=== PATIENT | female | born 1970 | race Caucasian/White ===

== ENCOUNTER 2018-04-22 16:50 | Emergency (ER) | payer OTHER, BC, SELFPAY ==
[2018-04-22 16:51] VITALS: BP 153/79; PULSE 58; RESP 18; TEMP 37.3; O2SAT 98; BMI 32.8
[2018-04-22] MEDS: HYDROcodone Bitartrate/Apap 5/325 Tablet PO (18:10)
[2018-04-22 18:12] VITALS: TEMP 36.6
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
--- NOTE | 2018-04-22 18:18 | ED.RN ---
PT [employer]OCIATE CALLED BACK TO ED. PT IS NOT A DRUG SCREEN.
== END 2018-04-22 18:38 | disposition home or self-care (01) ==
LOC: ED 18:12
PROVIDERS: Emergency Provider Emergency Medicine
DX: T25.232A Burn of second degree of left toe(s) (nail), initial encounter (principal); T25.231A Burn of second degree of right toe(s) (nail), initial encounter; T31.0 Burns involving less than 10% of body surface; X12.XXXA Contact with other hot fluids, initial encounter; Y93.G3 Activity, cooking and baking; Y92.89 Other specified places as the place of occurrence of the external cause; Y99.0 Civilian activity done for income or pay; Z79.899 Other long term (current) drug therapy
CPT/HCPCS: 99283

== ENCOUNTER → 2018-05-08 15:26 | Outpatient (CLI) | payer OTHER, SELFPAY ==
[2018-05-08 15:02] VITALS: BMI 36.1
--- NOTE | 2018-05-08 15:30 | RAD_ITS ---
STUDY: X-RAY - LEFT FOOT CLINICAL: Female, 48 years old. Pain following injury. TECHNIQUE: 3 view(s) of the foot. COMPARISON: None. FINDINGS: There is a plantar calcaneal spur. Normal visualized subtalar, talonavicular, calcaneocuboid, tarsal and tarsometatarsal articulations. Normal metatarsi. Normal metatarsophalangeal joint of the great toe. Normal tibial and fibular sesamoid bones. Normal interphalangeal joint of the great toe. Normal phalanges of the great toe. Normal second through fifth metatarsophalangeal joints. Normal interphalangeal joints and phalanges of the lesser toes. Soft tissue swelling. RAD/Foot min 3 Views IMPRESSION: Plantar spur. Soft tissue swelling. Electronically Signed: Bijan Angel MD at 15:46 EST Tel [phone], Service support ,
--- OUTSIDE RECORDS SUMMARY | 2018-07-13 14:47 | XMS RPT_ITS ---
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 Neutrophil, 7.40 Absolute Performed By: #### CBC, ADIFF, ANEU, LIP, GFR, CMP, TROPI #### [place] [address] LIP Collected: 08/08/2017 Status: F Source: [facility] 10:28 PM [facility] REPOSITORY TYPE CODE TESTS RESULT OUT OF REFERENCE UNITS RANGE LAB LIP(LOINC) 73-393 U/L Lipase Level 198 Performed By: #### CBC, ADIFF, ANEU, LIP, GFR, CMP, TROPI #### [place] [address] .GFR Collected: 08/08/2017 Status: F Source: [facility] 10:28 PM [facility] REPOSITORY TYPE CODE TESTS RESULT OUT OF REFERENCE UNITS RANGE LAB GFRAA(LOINC ml/min/1.73 ) sqm GFR >60 Pakistani Result Comment: GFR Population mean for , Non- Americans Ages 20-29 = 116 mL/min/1.73 sq.m. Ages 30-39 = 107 mL/min/1.73 sq.m. Ages 40-49 = 99 mL/min/1.73 sq.m. Ages 50-59 = 93 mL/min/1.73 sq.m. Ages 60-69 = 85 mL/min/1.73 sq.m. Ages 70+ = 75 mL/min/1.73 sq.m. Chronic Kidney Disease: Less than 60 mL/min/1.73 square meters End Stage Renal Disease: Less than 15 mL/min/1.73 square meters LAB GFRNO(LOINC) ml/min/1.73sqm GFR Non- >60 Result Comment: GFR Population mean for , Non- Americans Ages 20-29 = 116 mL/min/1.73 sq.m. Ages 30-39 = 107 mL/min/1.73 sq.m. Ages 40-49 = 99 mL/min/1.73 sq.m. Ages 50-59 = 93 mL/min/1.73 sq.m. Ages 60-69 = 85 mL/min/1.73 sq.m. Ages 70+ = 75 mL/min/1.73 sq.m. Chronic Kidney Disease: Less than 60 mL/min/1.73 square meters End Stage Renal Disease: Less than 15 mL/min/1.73 square meters Performed By: #### CBC, ADIFF, ANEU, LIP, GFR, CMP, TROPI #### [place] [address] CMP Collected: 08/08/2017 Status: F Source: [facility] 10:28 PM [facility] REPOSITORY TYPE CODE TESTS RESULT OUT OF REFERENCE UNITS RANGE LAB GLU(LOINC) 70-110 mg/dL Glucose Level 104 LAB NA(LOINC) 136-145 mEq/L Sodium Level 140 LAB K(LOINC) 3.5-5.0 mEq/L Potassium Level 3.5 LAB CL(LOINC) 98-110 mEq/L Chloride 106 LAB CO2(LOINC) 22-32 mEq/L CO2 27 LAB EBAL(LOINC 4.0-15.0 mEq/L ) Electrolyte Balance 7.0 LAB BUN(LOINC) 8.0-22.0 mg/dL BUN 19.0 LAB CRE(LOINC) 0.50-1.20 mg/dL Creatinine Lvl (s) 0.65 LAB BC(LOINC) 10.0-22.0 ratio High BUN/Creatinine 29.2 Ratio LAB CA(LOINC) 8.4-10.1 mg/dL Calcium Lvl 8.5 LAB PROT(LOINC 6.0-8.5 G/dL ) Total Protein 6.4 LAB ALB(LOINC) 3.2-4.8 G/dL Albumin Level 3.5 LAB GLB(LOINC) 1.5-3.8 G/dL Globulin 2.9 LAB AG(LOINC) 0.9-1.6 ratio A/G Ratio 1.2 LAB BILT(LOINC 0.2-1.2 mg/dL ) Bili Total 0.2 LAB AP(LOINC) 38-126 U/L Alk Phos 75 LAB AST(LOINC) 8-34 U/L AST/SGOT 13 LAB ALT(LOINC) 10-49 U/L ALT/SGPT 23 Performed By: #### CBC, ADIFF, ANEU, LIP, GFR, CMP, TROPI #### [address] [address] TROPI Collected: 08/08/2017 Status: F Source: [facility] 10:28 PM [facility] REPOSITORY TYPE CODE TESTS RESULT OUT OF REFERENCE UNITS RANGE LAB TROPI(LOINC 0.000-0.040 ng/mL ) Troponin I <0.015 Result Comment: Troponin I reference ranges (12/29/13): 0.00-0.040 ng/mL Negative and non-diagnostic. >0.040 ng/mL Consistent with cardiac damage, increased clinical risk and possibility of myocardial infarction. Serial measurements, a rise & fall in test results, clinical history, appropriate symptoms and/or ECG changes may help assess possibility of PA. *Other non-acute coronary syndrome conditions such as CHF, myocarditis, pulmonary emboli, sepsis and cardiac surgery could result in myocardial damage and increased troponin levels. Performed By: #### CBC, ADIFF, ANEU, LIP, GFR, CMP, TROPI #### [address] [address] ALLERGIES ALLERGIES DATE TYPE / CODE NAME / CODE REACTION SEVERITY SOURCE 04/24/2018 Drug methylphenid Other Unknown [facility] Allergy/4160 ate/[id number] [facility] [address](SNOMED 19(RXNORM) Repository CT) ENCOUNTERS ENCOUNTERS ADMIT/DISCHARGE ACCOUNT NUMBER ADMITTING ENCOUNTER LOCATION SOURCE CLASS 05/08/2018 [id number] Ambulatory [facility] ding:HPRAD Repository 05/08/2018/05/08/19 [id number] Ambulatory BMSBuilding: Mike 19 BMS.[facility] Repository 05/01/2018/05/01/19 [id number] Ambulatory BMSBuilding: [place] 19 BMS.[facility] Repository 04/26/2018/04/26/19 [id number] Emergency ABuilding:ER [address] Repository 04/24/2018/04/24/19 [id number] Ambulatory BMSBuilding: [place] 19 [facility] Repository 04/22/2018/04/22/20 [id number] Emergency Mike [place] 18 [facility] ding:ED Repository 02/04/2018 [id number] Ambulatory [facility] [place] ng:H.CRL 10/17/2017 [id number] Ambulatory [facility] [place] ng:H.INM 09/09/2017 [id number] [facility] [place] ng:H.CR 08/08/2017/08/09/19 [id number] Emergency ABuilding:ER [address] Repository 07/30/2017 [id number] [place] [facility] [place] ng:H.INM PAYERS PAYERS ENCOUNTER GUARANTOR PAYER SUBSCRIBER SOURCE 05/08/2018 MOISES L Primary MOISES L [place] [id number] Insurance:OB SELWAYDOB: [facility] 4135[place] Number: Repository [id number]: [phone] [id number] [phone] () Date:2680-93-97[address], [place] [address]RN: 05/08/2018 Secondary NOT GIVENUNK [place] Insurance:SELF PAY [facility] Number: Effective Repository Date:2018-05-08 05/08/2018 MOISES L Primary NOT GIVENUNK [place] [id number] Insurance:SELF PAY [place], [place] Number: Effective Repository [phone]: [phone]) Date:2018-05-08 [phone] () 05/01/2018 MOISES L Primary NOT GIVENUNK [place] [id number] Insurance:SELF PAY [place] Number: Effective Repository [id number]: ([phone] Date:2018-05-01 [phone] () 04/26/2018 MOISES L Primary MOISES L [facility] SELWAYDOB: Insurance:[facility] SELWAYDOB: [facility] [id number] Repository [facility] [employer] Number: [address] [place] [id number], [place] [address]Jll: ([phone]) Date:2018-04-22 [phone]: [id number] [phone] ()Tel: [phone]) Name:[employer] TE[employer] Box () () [address]192[address]kw[place]ji, [place] [phone] () [id number]: 04/26/2018 Secondary MOISES [facility]anti [facility] Insurance:[place] SELWAYDOB: [facility] [id number] Repository Number: 7 [facility] [id number] [place] Date:2018-04-26 285[address]Amg: 330 [id number] [phone] Name:[address] ()Tel: [phone]) [place], [place] [phone] (CG) [address]GR: 04/24/2018 MOISES L Primary NOT GIVENUNK Mike [id number] Insurance:SELF PAY Community [place] Number: Effective Repository [phone]: [phone]) Date:2018-04-24 [phone] () 04/22/2018 MOISES L Primary MOISES L Mike [id number] Insurance:OBW SELWAYDOB: Community [facility] [id number] Number: Repository [id number]: 330 [id number] [phone] () Date:6889-84-32AD [facility] [address]708[place]FX[place], [place] [address]NO: 04/22/2018 Secondary MOISES L [place] Insurance:[employer] SELWAYDOB: Community y Number: [id number] [id number] Repository Date:2921-51-05PP [address] [place] [address] [place] [address]QL: 04/22/2018 Tertiary NOT GIVENUNK [place] Insurance:SELF PAY [facility] Number: Effective Repository Date:2018-04-22 02/04/2018 MOISES L Primary MOISES MARIVEL [facility] [id number] Insurance:[facility] Number: [facility]ository [facility] or [id number]: ([phone]) Date:2641-36-78WX [phone] (HP) 192054LMQZ[place], [place] [address]UO: 10/17/2017 MOISES L Primary MOISES Santi [facility] [id number] Insurance:[facility]ository [facility] Number: [id number]: 330 [id number] [phone] (HP) Date:6216-20-06PW [address] [place] [address]RK: 09/09/2017 MOISES L Primary MOISES Santi [facility] [id number] Insurance:[facility] Repository [facility] or Number: [id number]: 330 [id number] [phone] (HP) Date:0712-94-76RM [address] [place] [address]AK: 08/08/2017 MOISES L Primary MOISES Santi [facility] SELWAYDOB: Insurance:[facility]: [facility] [address] [facility] [id number] [facility] [address] Number: [address] [place], [place] [address] [id number] [place], [place] [address]Ynq: ([phone]) Date:2017-08-08 111[address]Tjo: [id number] [phone] (HP)Tel: [phone]) Name:[address] (HP) (WP) 2276[facility] CenterMARTIR sheets [phone] (LW) [address]WP: 07/30/2017 MOISES [facility]3147 Insurance:[place], [place] Number: [id number]: [phone] [id number] [phone] () Date:3903-48-90OR [address] [place], [place] [address]MARTIR SHEETS [address]HS:
== END ==
PROVIDERS: Referring Provider Physician Assistant; Visit Provider Physician Assistant
DX: T25.222A Burn of second degree of left foot, initial encounter (principal); X58.XXXA Exposure to other specified factors, initial encounter; Y93.9 Activity, unspecified; Y92.9 Unspecified place or not applicable; Y99.9 Unspecified external cause status
CPT/HCPCS: 73630

== ENCOUNTER 2018-05-23 07:46 | Outpatient (RCR) | payer OTHER, BC, SELFPAY ==
[2018-05-08 15:02] VITALS: BMI 36.1
[2018-05-23 08:12] VITALS: BP 147/90; PULSE 71; RESP 20; TEMP 37.4; BMI 34.9
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
[2018-05-23 18:36] LABS: M R Staph aureus DNA By PCR Negative (Negative); Probe Check PASS; Specimen Processing Control PASS; Staph aureus DNA By PCR NEGATIVE (Negative)
== END 2018-05-23 23:59 ==
LOC: WC 07:46
PROVIDERS: Visit Provider Podiatrist
DX: L97.522 Non-pressure chronic ulcer of other part of left foot with fat layer exposed (principal); M79.672 Pain in left foot; F17.200 Nicotine dependence, unspecified, uncomplicated
CPT/HCPCS: 11042; 87070; 87075; 87205; 87640; 99213; G0463

== ENCOUNTER → 2018-05-23 14:08 | Outpatient (CLI) | payer OTHER, BC, SELFPAY ==
[2018-05-23 08:12] VITALS: BMI 34.9
== END ==
PROVIDERS: Referring Provider Physician Assistant; Visit Provider Physician Assistant
DX: T25.222A Burn of second degree of left foot, initial encounter (principal); X58.XXXA Exposure to other specified factors, initial encounter; Y93.9 Activity, unspecified; Y92.9 Unspecified place or not applicable; Y99.9 Unspecified external cause status
CPT/HCPCS: 87070; 87205

== ENCOUNTER 2018-06-13 08:13 | Outpatient (RCR) | payer OTHER, BC, SELFPAY ==
[2018-05-24 01:59] VITALS: BP 147/90; PULSE 71; RESP 20; TEMP 37.4
[2018-06-05 15:35] VITALS: BMI 34.9
[2018-06-13 08:28] VITALS: BP 135/72; RESP 18; TEMP 36.8; BMI 34.9
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
== END 2018-06-20 23:59 ==
LOC: WC 08:13
PROVIDERS: Visit Provider Podiatrist
DX: Z09 Encounter for follow-up examination after completed treatment for conditions other than malignant neoplasm (principal); M79.675 Pain in left toe(s)
CPT/HCPCS: 99213; G0463

== ENCOUNTER → 2018-07-03 14:25 | Outpatient (CLI) | payer BC, OTHER, SELFPAY ==
[2018-07-02 14:35] VITALS: BMI 34.9
== END ==
PROVIDERS: Referring Provider Physician Assistant Surgical; Visit Provider Physician Assistant Surgical
DX: J02.9 Acute pharyngitis, unspecified (principal)
CPT/HCPCS: 87081

== ENCOUNTER → 2019-01-08 10:08 | Outpatient (CLI) | payer OTHER, SELFPAY ==
[2019-01-08 10:00] VITALS: BMI 36.6
--- NOTE | 2019-01-08 10:11 | RAD_ITS ---
STUDY: X-RAY - SACRUM/COCCYX REASON FOR EXAM: Female, 48 years old. Pain following a fall. TECHNIQUE: view(s) of the sacrum and coccyx were obtained. COMPARISON: None. FINDINGS: Normal bilateral sacroiliac joints. Normal visualized sacral ala and fused sacral bodies. Normal sacrococcygeal junction with a normal angulation. Normal coccygeal segments. Disc space narrowing and disc degeneration at the L5-S1 level. The presacral soft tissue structures are unremarkable. RAD/Sacrum-Coccyx min 2 Views IMPRESSION: No acute abnormality is seen. Electronically Signed: Bijan Angel, at 11:10 EDT , Service support ,
--- NOTE | 2019-01-08 10:11 | RAD_ITS ---
STUDY: X-RAY - LEFT KNEE REASON FOR EXAM: Female, 48 years old. Medial knee pain following a fall. TECHNIQUE: 4 view(s) of the knee. COMPARISON: None. FINDINGS: The generous spurring along the medial condyle of the distal femur. Normal visualized proximal tibia and fibula. Normal proximal tibiofibular articulation. There is a 5.7 mm well-defined bony density in the posterior medial aspect of the knee joint. This may represent a small loose body. There is moderate degenerative arthrosis of the medial femorotibial compartment with moderate joint space narrowing. There is moderate degenerative arthrosis of the lateral femorotibial compartment with moderate joint space narrowing. There is moderate degenerative arthrosis of the patellofemoral articulation. The soft tissue structures are unremarkable. RAD/Knee 4 or More Views IMPRESSION: Degenerative arthrosis. Findings suggestive of a small intra-articular loose bone density. Electronically Signed: Bijan Angel, at 11:09 EDT , Service support ,
== END ==
PROVIDERS: Referring Provider Physician Assistant; Visit Provider Physician Assistant
DX: S30.0XXA Contusion of lower back and pelvis, initial encounter (principal); S89.92XA Unspecified injury of left lower leg, initial encounter; X58.XXXA Exposure to other specified factors, initial encounter; Y93.9 Activity, unspecified; Y92.9 Unspecified place or not applicable; Y99.9 Unspecified external cause status
CPT/HCPCS: 72220; 73564

== ENCOUNTER → 2019-02-26 10:49 | Outpatient (CLI) | payer OTHER, BC, SELFPAY ==
[2019-02-26 10:32] VITALS: BMI 36.3
--- NOTE | 2019-02-26 11:01 | RAD_ITS ---
STUDY: X-RAY - LUMBOSACRAL SPINE REASON FOR EXAM: Female, 49 years old. Injury, pain TECHNIQUE: 6 view(s) of the lumbosacral spine were obtained. COMPARISON: None FINDINGS: Normal lumbar lordosis. There is no substantial scoliosis. There is normal alignment of the vertebrae. There is multilevel endplate spondylosis of the lumbar vertebrae. There is narrowing of the L1-2, L2-3, and L5-S1 disc spaces. Normal bilateral sacral ala, sacroiliac joints, and visualized sacrum. Normal visualized soft tissue structures. RAD/L/S Spine w Bend Min 6 Vw IMPRESSION: Degenerative changes of the spine, as detailed above. Electronically Signed: Dain Colin MD at 16:55 EST , Service support ,
== END ==
PROVIDERS: Referring Provider Orthopaedic Surgery; Visit Provider Orthopaedic Surgery
DX: M79.604 Pain in right leg (principal)
CPT/HCPCS: 72114

== ENCOUNTER → 2019-05-16 09:34 | Outpatient (CLI) | payer OTHER, SELFPAY ==
[2019-05-05 07:56] VITALS: BMI 36.3
--- NOTE | 2019-05-16 09:35 | MRI_ITS ---
STUDY: MRI LEFT KNEE REASON FOR EXAM: Knee pain and cyst behind the knee since December. TECHNIQUE: Standardized fat and water weighted pulse sequences were obtained in all 3 orthogonal planes. COMPARISON: Radiographs 01/08/2019. FINDINGS: Although there is image degradation secondary to patient motion, there is still significant diagnostically useful information available from this examination. There is no demonstrated meniscal tear. There is arthrosis of the medial femorotibial compartment with a small marginal osteophyte of the medial femoral condyle and partial thickness chondral loss of the medial femoral condyle (T2 sagittal image 9). There is mild subchondral edema of the medial tibial plateau (T2 coronal images 13-17), a stress phenomenon. Normal medial collateral ligamentous complex (MCL). Normal distal semimembranosus, gracilis and semitendinosus tendons. There is no demonstrated lateral meniscal tear. There is arthrosis of the lateral femorotibial compartment with marginal osteophytes and partial thickness chondral loss of the lateral femoral condyle (T2 sagittal image 17). Normal lateral femoral condyle and tibial plateau. Normal proximal tibiofibular articulation. Normal lateral collateral (fibular) ligament. Normal popliteus tendon. Normal biceps femoris tendon. Normal anterior cruciate ligament (ACL). Normal posterior cruciate ligament (PCL). There is lateral subluxation of the patella (T2 axial image 13). There is arthrosis of the patellofemoral compartment with marginal osteophytes and chondral loss (T2 sagittal image 16). Normal medial and lateral patellar retinaculum. Normal quadriceps tendon. Normal patellar tendon. Normal Hoffa''s fat pad. There is a small to moderate-sized joint effusion. There is an intra-articular body posterior to the root of the posterior horn of the medial meniscus (T2 coronal image 9) measuring 0.4 cm in transverse dimension. There is a thin medial patellar plica. There is a popliteal cyst measuring approximately 6.4 cm in length with extravasation of fluid (T2 sagittal images 4-10). There is a ganglion cyst adjacent to the origin of the medial gastrocnemius (T2 sagittal images 7-11) measuring 2.3 cm in transverse dimension. There is a ganglion cyst posterior to the posterior cruciate ligament (T2 sagittal images 13, 14) measuring approximately 2.2 cm in length. There is mild bone edema in the proximal tibia at the insertion site of the anterior cruciate ligament. MRI/Lower Ext Joint Only (Routine) IMPRESSION: Tricompartmental arthrosis. Mild subchondral bone edema of the medial tibial plateau, a stress phenomenon. Lateral subluxation of the patella. Joint effusion. Popliteal cyst with extravasation of fluid. Posterior intra-articular body. Ganglion cysts adjacent to the origin of the medial gastrocnemius and posterior to the posterior cruciate ligament. Electronically Signed: Gianni Bethea MD at 11:03 EST Tel , Service support ,
== END ==
PROVIDERS: Referring Provider Orthopaedic Surgery; Visit Provider Orthopaedic Surgery
DX: S86.912A Strain of unspecified muscle(s) and tendon(s) at lower leg level, left leg, initial encounter (principal); X58.XXXA Exposure to other specified factors, initial encounter; Y93.9 Activity, unspecified; Y92.9 Unspecified place or not applicable; Y99.9 Unspecified external cause status
CPT/HCPCS: 73721

== ENCOUNTER 2023-03-29 08:08 | Emergency (ER) | payer BC, SELFPAY ==
[2023-03-29 08:09] VITALS: BP 170/93; PULSE 76; RESP 14; TEMP 36.6; O2SAT 100; BMI 35.7
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
--- NOTE | 2023-03-29 08:49 | CT_ITS ---
STUDY: CT BRAIN WITHOUT CONTRAST REASON FOR EXAM: Female, 53 years old. Injury/Pain RADIATION DOSAGE (If Supplied By Facility): CTDIvol = ( 44.99 ) mGy, DLP = ( 829.85 ) mGycm TECHNIQUE: Transaxial CT imaging of the brain was performed without administration of intravenous contrast material. Individualized dose optimization techniques were used for this CT. COMPARISON: No relevant priors. FINDINGS: Normal soft tissue structures. There is hyperostosis frontalis internus. Normal size ventricles and extra-axial spaces for the patient''s age. Normal white matter tracts of the cerebral hemispheres. Normal basal ganglia and thalami. Normal brainstem. Normal cerebellum. There is no intracranial hemorrhage. There are no findings of an acute ischemic infarction. There is a 9.1 mm polyp in the anterior wall of the right maxillary sinus and mucosal thickening along the posterior aspect of the maxillary sinus. CT/Brain/Head without Contrast IMPRESSION: Normal unenhanced CT scan of the brain. Mucosal thickening right maxillary sinus as well as a small polyp. Electronically Signed: Bijan Angel MD at 9:29 EST ,
--- NOTE | 2023-03-29 08:49 | CT_ITS ---
STUDY: CT CERVICAL SPINE WITHOUT CONTRAST REASON FOR EXAM: Female, 53 years old. Injury/Pain RADIATION DOSAGE (If Supplied By Facility): CTDIvol = ( 25.67 ) mGy, DLP = ( 530.47 ) mGycm TECHNIQUE: High resolution transaxial imaging was performed without contrast material. Sagittal and coronal images were reconstructed. Individualized dose optimization techniques were used for this CT. COMPARISON: None FINDINGS: Normal craniovertebral junction. Normal anterior atlantoaxial articulation. Normal odontoid process. There is straightening of the normal cervical lordosis. Normal vertebral bodies and posterior osseous elements. C2-3: Normal endplates. Normal disc height and morphology. Normal central canal and intervertebral neuroforamina. C3-4: Normal endplates. Normal disc height and morphology. Normal central canal and intervertebral neuroforamina. C4-5: Moderate degree of disc space narrowing. Spondylosis. Uncovertebral arthrosis. Bilateral neural foraminal stenosis worse on the right side. C5-6: Moderate degree of disc space narrowing. Spondylosis. Uncovertebral arthrosis. Bilateral neural foraminal stenosis worse on the right side. C6-7: Moderate degree of disc space narrowing. Spondylosis. Uncovertebral arthrosis. Mild degree of neural foraminal stenosis. C7-T1: Normal endplates. Normal disc height and morphology. Normal central canal and intervertebral neuroforamina. Surgical clips are seen in the region of the thyroid gland. CT/Spine Cervical without Contras IMPRESSION: Multilevel degenerative changes, as described above. Electronically Signed: Bijan Angel MD at 9:31 EST ,
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
[2023-03-29 10:08] VITALS: BP 147/81; PULSE 61; RESP 18; O2SAT 96
== END 2023-03-29 10:22 | disposition home or self-care (01) ==
PROVIDERS: Emergency Provider Emergency Medicine; Visit Provider Emergency Medicine
DX: S09.90XA Unspecified injury of head, initial encounter (principal); S20.20XA Contusion of thorax, unspecified, initial encounter; S16.1XXA Strain of muscle, fascia and tendon at neck level, initial encounter; V43.52XA Car driver injured in collision with other type car in traffic accident, initial encounter; W22.10XA Striking against or struck by unspecified automobile airbag, initial encounter; Y92.410 Unspecified street and highway as the place of occurrence of the external cause; E07.9 Disorder of thyroid, unspecified; Z79.890 Hormone replacement therapy; Z79.899 Other long term (current) drug therapy; F17.210 Nicotine dependence, cigarettes, uncomplicated
CPT/HCPCS: 70450; 71101; 72125; 99282

== ENCOUNTER → 2023-09-27 | Outpatient (CLI) | payer BC, SELFPAY ==
[2023-09-27 17:20] LABS: Absolute Neutrophil Count 5.9 X10^3/uL (2.0-7.7); Basophil# 0.11 X10^3/uL; Eosinophil# 0.33 X10^3/uL; Eosinophils% 2.9 % (0-5); Lymphocyte % 36.3 % (19-41); Mean Corp Hgb Conc 33.3 g/dL (32-36); Mean Corpuscular Hgb 28.7 pg (27.0-32.0); Mean Platelet Vol. 11.6 fl (6.2-12.0); Monocyte# 0.82 X10^3/uL; Monocyte% 7.3 % (0-10); NRBC Flagged by Analyzer 0 % (0-5); Neutrophil # 5.88 X10^3/uL (2.7-7.7); Neutrophil % 52.1 % (47-70); Platelet Count 221 K/mm3 (150-450); RBC Distribution Width CV 13.1 % (11.6-14.6); RBC Distribution Width SD 41.1 fl (35.1-43.9); Red Blood Count 5.23 M/mm3 (4.2-5.4); White Blood Count 11.3 K/mm3 (4.4-11.0)
[2023-09-27 17:35] LABS: Hemoglobin A1c 5.3 % (3.8-5.6)
[2023-09-27 17:38] LABS: ALB/GLOB Ratio 1.3 RATIO (0.9-2.4); AST(SGOT) 16 U/L (15-37); Alanine Aminotransfer ALT/SGPT 23 U/L (13-56); Albumin, Serum 3.7 g/dL (3.2-5.0); Alkaline Phosphatase 82 U/L (45-117); Anion Gap 7 (5-15); BUN 13 mg/dL (7-18); BUN/Creat Ratio 16.6 RATIO (10-20); Calcium,Total 8.9 mg/dL (8.5-10.1); Chloride 106 mmol/L (98-107); Creatinine, Serum 0.78 mg/dL (0.55-1.02); EST Glomerular Filtration Rate 81 mL/min (>60); Est Glom Filt Rate - Afr Amer 98 mL/min (>60); Globulin 2.8 g/dL (2.2-4.2); Glucose 85 mg/dL (74-106); Magnesium 2.1 mg/dL (1.6-2.6); Potassium 3.6 mmol/L (3.5-5.1); Protein, Total 6.5 g/dL (6.4-8.2); Sodium Level 137 mmol/L (136-145); T4 Free Direct 1.38 ng/dL (0.76-1.46); Thyroid Stim Hormone (TSH) 0.41 uIU/mL (0.358-3.74)
== END | disposition home or self-care (01) ==
LOC: LABSPEC 15:54
PROVIDERS: Visit Provider Nurse Practitioner Family
DX: R03.0 Elevated blood-pressure reading, without diagnosis of hypertension (principal); I47.10 Supraventricular tachycardia, unspecified; Z85.850 Personal history of malignant neoplasm of thyroid; E66.9 Obesity, unspecified
CPT/HCPCS: 36415; 80053; 83036; 83735; 84439; 84443; 85025

== ENCOUNTER → 2024-04-01 | Outpatient (CLI) | payer OTHER, SELFPAY ==
[2024-04-01 17:11] LABS: Absolute Lymphocyte Count 3.99 X10^3/uL (0.83-4.51); Absolute Neutrophil Count 6.4 X10^3/uL (2.0-7.7); Basophil# 0.16 X10^3/uL; Basophil% 1.4 % (0-1); Eosinophil# 0.41 X10^3/uL; Eosinophils% 3.5 % (0-5); Hemoglobin 14.7 g/dL (12.0-15.0); Lymphocyte # 3.99 X10^3/ul (0.83-4.51); Lymphocyte % 33.9 % (19-41); Mean Corp Hgb Conc 33.4 g/dL (32-36); Mean Corpuscular Hgb 28.7 pg (27.0-32.0); Mean Corpuscular Volume 85.8 fL (81-99); Mean Platelet Vol. 12.1 fl (6.2-12.0); NRBC Flagged by Analyzer 0 % (0-5); Neutrophil # 6.44 X10^3/uL (2.7-7.7); Neutrophil % 54.7 % (47-70); Platelet Count 200 K/mm3 (150-450); RBC Distribution Width CV 13.2 % (11.6-14.6); RBC Distribution Width SD 41.6 fl (35.1-43.9); Red Blood Count 5.13 M/mm3 (4.2-5.4); White Blood Count 11.8 K/mm3 (4.4-11.0)
[2024-04-01 17:41] LABS: ALB/GLOB Ratio 1.2 RATIO (0.9-2.4); AST(SGOT) 20 U/L (15-37); Alanine Aminotransfer ALT/SGPT 30 U/L (13-56); Albumin, Serum 3.5 g/dL (3.2-5.0); Alkaline Phosphatase 105 U/L (45-117); Anion Gap 6 (5-15); BUN 15 mg/dL (7-18); BUN/Creat Ratio 16.9 RATIO (10-20); Chloride 107 mmol/L (98-107); Creatinine, Serum 0.89 mg/dL (0.55-1.02); EST Glomerular Filtration Rate 70 mL/min (>60); Est Glom Filt Rate - Afr Amer 85 mL/min (>60); Glucose 107 mg/dL (74-106); Potassium 3.3 mmol/L (3.5-5.1); Protein, Total 6.5 g/dL (6.4-8.2); Sodium Level 141 mmol/L (136-145); T4 Free Direct 1.11 ng/dL (0.76-1.46)
[2024-04-01 18:18] LABS: Hemoglobin A1c 5.2 % (3.8-5.6)
== END | disposition home or self-care (01) ==
LOC: VSLAB 14:16
PROVIDERS: PCP Nurse Practitioner Family; Visit Provider Nurse Practitioner Family
DX: E03.9 Hypothyroidism, unspecified (principal); M25.539 Pain in unspecified wrist; I47.10 Supraventricular tachycardia, unspecified; E66.9 Obesity, unspecified; Z85.850 Personal history of malignant neoplasm of thyroid
CPT/HCPCS: 36415; 80053; 83036; 83735; 84439; 84443; 85025

== ENCOUNTER → 2024-05-28 | Outpatient (CLI) | payer OTHER, SELFPAY ==
[2024-05-30 05:07] LABS: HEPATITIS B SURFACE AG Negative (Negative); Hep C Antibodies Non Reactive (Non Reactive); Hepatitis A IgM Antibody Negative (Negative); Hepatitis B Core AB IgM Negative (Negative)
== END | disposition home or self-care (01) ==
PROVIDERS: PCP Nurse Practitioner Family
DX: Z20.5 Contact with and (suspected) exposure to viral hepatitis (principal)
CPT/HCPCS: 36415; 80074

== ENCOUNTER 2024-07-04 10:08 | Emergency (ER) | payer OTHER, SELFPAY ==
[2024-07-04 10:09] VITALS: BP 179/90; PULSE 83; RESP 18; TEMP 36.6; O2SAT 100; BMI 35.2
--- NOTE | 2024-07-04 10:21 | EKG12_ITS ---
Test Reason : HTN Blood Pressure : */* mmHG Vent. Rate : 67 BPM Atrial Rate : 67 BPM P-R Int : 178 ms QRS Dur : 132 ms QT Int : 422 ms P-R-T Axes : 44 -20 82 degrees QTcB Int : 445 ms Normal sinus rhythm Left ventricular hypertrophy with QRS widening ( R in aVL , Emerson product ) Abnormal ECG Confirmed by JIGNESH DELATORRE, CASS ([id number]), medical editor JERO HECTOR ([id number]) on 07/07/2024 10:52:50 AM Referred By: Confirmed By: CASS EGAN MD
--- NOTE | 2024-07-04 10:22 | EX.ED.DYSGE1 ---
HPI History of Present Illness Chief Complaint: Hypertension Narrative Narrative: 54-year-old female past medical history of SVT, was recently diagnosed with hypertension 2 days ago at the [facility] spine clinic. She presents with multiple somatic complaints, and is unsure if she took her blood pressure medication today. She states that she was seen 2 days ago because of elevated blood pressure. She was started reportedly on lisinopril 10 mg. She took it Sunday evening and when she awoke on morning, states her blood pressure was controlled. However, she states she put it aside to look it up on the Internet to see any side effects, and put it aside. She is unsure if she took it today. She presents with worsening symptoms, stating that she has had worsening headaches, with left-sided chest pain, and does not feel right. She denies any leg swelling, no exacerbating or alleviating factors. States that her blood pressure has been running high in the 170s and 180s recently. [facility] Medical History SVT (supraventricular tachycardia) Acute depression Anxiety Thyroid disease Arthritis Home Medications ?Medication ?Instructions ?Recorded ?Last Taken ?Type lamotrigine 150 mg tablet 150 mg PO BID 04/22/18 Unknown History venlafaxine 150 mg 150 mg PO BID 04/22/18 Unknown History capsule,extended release 24 hr albuterol sulfate 90 mcg/actuation 1 puff inhalation Q6H PRN 04/05/20 Unknown History aerosol inhaler bupropion HCl 300 mg 24 hr tablet, 300 mg PO QAM #30 tabs 04/05/20 Unknown History extended release clonazepam 2 mg tablet 1 mg PO DAILY PRN Anxiety 04/05/20 Unknown History cyclobenzaprine 10 mg tablet 10 mg PO TID PRN muscle spasm #50 04/05/20 Unknown Rx tabs levothyroxine 200 mcg tablet 200 mcg PO DAILY 04/05/20 Unknown History meloxicam 15 mg tablet (Mobic) 15 mg PO DAILY #30 tabs 04/05/20 Unknown Rx metoprolol succinate 50 mg 50 mg PO DAILY 04/05/20 Unknown History tablet,extended release 24 hr pantoprazole 40 mg tablet,delayed 40 mg PO DAILY 04/05/20 Unknown History release Allergy/AdvReac Type Severity Reaction Status Date / Time methylphenidate (From Allergy Other Verified 07/04/24 10:11 Ritalin) Surgical History Hx of thyroidectomy History of hysterectomy Hx of cholecystectomy Social History Smoking Status: Current every day smoker tobacco type: cigarettes ROS ROS ED ROS Narrative Constitutional: No fever, no chills. Malaise. HEENT: No sore throat. No neck pain. No loss of vision. Cardiovascular: Positive chest pain. No palpitations. No pedal edema. Respiratory: No cough, no shortness of breath. Abdominal: No abdominal pain. No nausea. No vomiting. Genitourinary: No dysuria. No hematuria. Musculoskeletal: No myalgias. No arthralgias. Neurologic: Positive headaches. No dizziness. No lightheadedness. EXAM Physical Exam Narrative Exam Narrative: Afebrile. Vital signs noted. Nontoxic-appearing. Cardiovascular examination reveals a regular rate and rhythm. Lungs are clear to auscultation bilaterally. Abdomen is soft and nontender with positive bowel sounds. No guarding or rebound. Neurological examination nonfocal and nonlateralizing. Moves all extremities. No pedal edema noted. Const Vital Signs: 07/04/24 10:09 07/04/24 10:43 07/04/24 11:36 Temperature 97.8 F Temperature Source Oral Pulse Rate 83 65 Respiratory Rate 18 16 Respiratory Effort Normal Respiratory Pattern Normal Blood Pressure 179/90 H 158/82 H Blood Pressure Mean 119 107 Pulse Ox 100 98 Oxygen Delivery Method Room Air Room Air 07/04/24 12:00 Temperature Temperature Source Pulse Rate 66 Respiratory Rate 16 Respiratory Effort Respiratory Pattern Blood Pressure 145/74 H Blood Pressure Mean 97 Pulse Ox 98 Oxygen Delivery Method Room Air MDM MDM MDM Narrative Medical decision making narrative: Differential diagnosis includes but not limited to hypertensive encephalopathy versus intracranial hemorrhage. I will check baseline laboratory work to look for any endorgan damage from any hypertensive urgency versus emergency. EKG will be obtained as well. Given her chest pain, chest x-ray will be obtained to rule out any pneumonia or pneumothorax. EKG obtained and interpreted by myself independently as normal sinus rhythm at 67 bpm without ectopy or acute ST changes. No STEMI. I reviewed her laboratory work and she has normal white count 9.6 with hemoglobin normal at 14.9 with hematocrit 44.7, platelet count normal at 173. Electrolyte panel significant for BUN of 21 with creatinine normal at 0.8. LFTs are grossly unremarkable. Initial high-sensitivity troponin is 8 with second at 2 hours being 7. Hence, I feel she has been ruled out with biomarkers for ACS. CT of the brain to rule out hypertensive bleed was obtained and radiology report reviewed. There is no acute process. Chest x-ray in 1 view interpreted by myself independently shows noconsolidation or pneumothorax. I reviewed the radiology report which confirms my independent interpretation and they do comment on mild pulmonary congestion. However her pulse ox is 98 to 100% on room air. I do not feel that she needs Lasix. Upon repeat examination, she states she feels the same, but no better, no worse. After lisinopril 10 mg which is her home dose, her blood pressure is now 145/74. I feel she could be discharged to follow-up with her primary care provider. She should take a log of her blood pressures and keep them over the next week. Return with continued elevation of her blood pressures, new or worsening symptoms. I stressed the importance of taking her antihypertensive medication as well. Disposition is discharged home in stable condition. History & Record Review Discussion w/independent historian: Patient Lab Data Attestation: I reviewed the patient's lab results. Labs: Laboratory Results - last 24 hr 07/04/24 07/04/24 07/04/24 10:45 10:45 11:34 WBC Cancelled 9.6 Corrected WBC Cancelled RBC Cancelled 5.18 Hgb Cancelled 14.9 Hct Cancelled 44.7 MCV Cancelled 86.3 MCH Cancelled 28.8 MCHC Cancelled 33.3 RDW Std Deviation Cancelled 40.2 RDW Coeff of Flakita Cancelled 12.7 Plt Count Cancelled 173 MPV Cancelled 11.4 Immature Gran % (Auto) Cancelled 0.300 Neut % (Auto) Cancelled 58.5 Lymph % (Auto) Cancelled 29.8 [place] % (Auto) Cancelled 6.8 Eos % (Auto) Cancelled 3.5 Baso % (Auto) Cancelled 1.1 H Absolute Neuts (auto) Cancelled 5.6 Absolute Lymphs (auto) Cancelled 2.87 Total Counted Cancelled Neutrophils % (Manual) Cancelled Band Neutrophils % Cancelled Lymphocytes % (Manual) Cancelled Monocytes % (Manual) Cancelled Eosinophils % (Manual) Cancelled Basophils % (Manual) Cancelled Metamyelocytes % Cancelled Myelocytes % Cancelled Promyelocytes % Cancelled Blast Cells % Cancelled Plasma Cell % (Manual) Cancelled Other Cells % Cancelled Nucleated RBC % Cancelled 0 Nucleated RBCs/100 WBC Cancelled Differential Comment Cancelled Diff Path Review Cancelled Hypersegmented Neuts Cancelled Atypical Lymphocytes Cancelled Reactive Lymphocytes Cancelled Smudge Cells Cancelled Toxic Granulation Cancelled Toxic Vacuolation Cancelled Dohle Bodies Cancelled Janie Rods Cancelled Platelet Estimate Cancelled Plt Morphology Comment Cancelled RBC Morphology Cancelled Cancelled Polychromasia Cancelled Hypochromasia Cancelled Basophilic Stippling Cancelled Anisocytosis Cancelled Microcytosis Cancelled Macrocytosis Cancelled Spherocytes Cancelled Sickle Cells Cancelled Target Cells Cancelled Tear Drop Cells Cancelled Ovalocytes Cancelled Stomatocytes Cancelled Lane[place] Bodies Cancelled Gayle Cells Cancelled Bite Cells Cancelled Crenated Cell Cancelled Acanthocytes (Spur) Cancelled Rouleaux Cancelled Schistocytes Cancelled Sodium 143 Potassium 3.9 Chloride 106 Carbon Dioxide 26.6 Anion Gap 11 BUN 21 H Creatinine 0.85 Estim Creat Clear Calc 87.74 Est GFR (MDRD) Non-Af 80 BUN/Creatinine Ratio 24.6 H Glucose 96 Calcium 9.9 Total Bilirubin 0.33 AST 18 ALT 22 Alkaline Phosphatase 99 Troponin T High Sens 8 Troponin T Hi Sens 2 Hr Total Protein 6.5 Albumin 4.3 Globulin 2.3 Albumin/Globulin Ratio 1.9 07/04/24 12:25 WBC Corrected WBC RBC Hgb Hct MCV MCH MCHC RDW Std Deviation RDW Coeff of Flakita Plt Count MPV Immature Gran % (Auto) Neut % (Auto) Lymph % (Auto) [place] % (Auto) Eos % (Auto) Baso % (Auto) Absolute Neuts (auto) Absolute Lymphs (auto) Total Counted Neutrophils % (Manual) Band Neutrophils % Lymphocytes % (Manual) Monocytes % (Manual) Eosinophils % (Manual) Basophils % (Manual) Metamyelocytes % Myelocytes % Promyelocytes % Blast Cells % Plasma Cell % (Manual) Other Cells % Nucleated RBC % Nucleated RBCs/100 WBC Differential Comment Diff Path Review Hypersegmented Neuts Atypical Lymphocytes Reactive Lymphocytes Smudge Cells Toxic Granulation Toxic Vacuolation Dohle Bodies Janie Rods Platelet Estimate Plt Morphology Comment RBC Morphology Polychromasia Hypochromasia Basophilic Stippling Anisocytosis Microcytosis Macrocytosis Spherocytes Sickle Cells Target Cells Tear Drop Cells Ovalocytes Stomatocytes Lane[place] Bodies Rector Cells Bite Cells Crenated Cell Acanthocytes (Spur) Rouleaux Schistocytes Sodium Potassium Chloride Carbon Dioxide Anion Gap BUN Creatinine Estim Creat Clear Calc Est GFR (MDRD) Non-Af BUN/Creatinine Ratio Glucose Calcium Total Bilirubin AST ALT Alkaline Phosphatase Troponin T High Sens Troponin T Hi Sens 2 Hr 7 Total Protein Albumin Globulin Albumin/Globulin Ratio Radiography Diagnostic Testing: Clinical Impression(s) from Imaging Studies Brain CT 07/04/24 10:55 IMPRESSION: No acute abnormality is seen. Reading [facility]-Ray 07/04/24 11:00 IMPRESSION: Pulmonary venous congestion. Reading Location: [facility] Discharge Plan Triage Chief Complaint: Hypertension ED Provider: Renzo Vieira Dx/Rx/DC Orders Clinical Impression: Malaise, Hypertension, Chest pain, Headache Instructions: ED Hypertension, Established, ED Pain, Acute, Uncertain Cause Prescriptions: No Action bupropion HCl 300 mg tablet extended release 24 hr 300 mg PO QAM Qty: 30 Patient Comments: TAKE 1 TABLET BY MOUTH ONCE A DAY. levothyroxine 200 mcg tablet 200 mcg PO DAILY Patient Comments: TAKE 1 TABLET BY MOUTH ONCE A DAY. metoprolol succinate 50 mg tablet extended release 24 hr 50 mg PO DAILY Patient Comments: TAKE 1 TABLET BY MOUTH ONCE A DAY. pantoprazole 40 mg tablet,delayed release (DR/EC) 40 mg PO DAILY albuterol sulfate 90 mcg/actuation HFA aerosol inhaler 1 puff INHALATION Q6H PRN Patient Comments: USE ONE OR TWO INHALATIONS BY MOUTH EVERY SIX HOURS NEEDED FOR WHEEZING,SHORTNESS OF BREATH,OR DRY COUGH. meloxicam [Mobic] 15 mg tablet 15 mg PO DAILY Qty: 30 1RF cyclobenzaprine 10 mg tablet 10 mg PO TID PRN (Reason: muscle spasm) Qty: 50 1RF lamotrigine 150 MG tablet 150 mg PO BID venlafaxine 150 MG capsule 150 mg PO BID clonazepam 2 mg tablet 1 mg PO DAILY PRN (Reason: Anxiety) Primary Care Provider: Michelle Vallecillo Referrals: Michelle Vallecillo, [facility] [Primary Care Provider] - 3-5 Days if not improving Activity Restrictions/Additional Instructions: Take your lisinopril as previously directed. Return to the emergency department with increased chest pain, new or worsening symptoms. Print Language: Romanian Disposition Disposition: Home, Self Care
--- NOTE | 2024-07-04 10:55 | CT_ITS ---
EXAM: BRAIN/HEAD WITHOUT CONTRAST CLINICAL HISTORY: HEADACHES, HYPERTENSION COMPARISON: Comparison is made with prior study dated March 29, 2023. TECHNIQUE: Multiple axial tomographic images were obtained without intravenous contrast administration. Coronal and sagittal reconstruction was obtained as well. FINDINGS: Normal gatica-white matter differentiation. No significant atrophy is seen. There is evidence of hyperostosis frontalis interna as well as calcification of the cerebral falx. Small mucosal polyp or retention cyst at the base of the right maxillary sinus. CT/Brain/Head without Contrast IMPRESSION: No acute abnormality is seen. [facility]
--- NOTE | 2024-07-04 11:00 | RAD_ITS ---
EXAM: XR Chest, 1 View CLINICAL INDICATION: CHEST PAIN TECHNIQUE: Frontal view of the chest. COMPARISON: No relevant prior studies available. FINDINGS: LUNGS AND PLEURAL SPACES: Pulmonary venous congestion. No consolidation. No pneumothorax. HEART: Unremarkable. No cardiomegaly. MEDIASTINUM: Unremarkable. Normal mediastinal contour. BONES/JOINTS: Unremarkable. No acute fracture. RAD/Chest 1 View (Portable) IMPRESSION: Pulmonary venous congestion. Reading [facility]
[2024-07-04 11:16] LABS: ALB/GLOB Ratio 1.9 RATIO (0.9-2.4); AST(SGOT) 18 U/L (<=31); Alanine Aminotransfer ALT/SGPT 22 U/L (<=34); Albumin, Serum 4.3 g/dL (3.5-5.0); Alkaline Phosphatase 99 U/L (35-104); Anion Gap 11 (5-15); BUN 21 mg/dL (4-19); BUN/Creat Ratio 24.6 RATIO (10-20); Calcium,Total 9.9 mg/dL (7.6-11.0); Carbon Dioxide 26.6 mmol/L (21.0-32.0); Chloride 106 mmol/L (98-108); Creatinine, Serum 0.85 mg/dL (0.70-1.20); EST Glomerular Filtration Rate 80 (>60); Estimated Creatinine Clearance 87.74 ml/min (50-250); Globulin 2.3 g/dL (2.2-4.2); Glucose 96 mg/dL (70-99); Potassium 3.9 mmol/L (3.3-5.1); Protein, Total 6.5 g/dL (5.9-8.4); Sodium Level 143 mmol/L (133-145); Total Bilirubin 0.33 mg/dL (0.00-1.30)
[2024-07-04 11:36] VITALS: BP 158/82; PULSE 65; RESP 16; O2SAT 98
[2024-07-04 11:37] LABS: Troponin T High Sensitivity 8 ng/L (<=14)
[2024-07-04 11:39] LABS: Absolute Lymphocyte Count 2.87 X10^3/uL (0.83-4.51); Absolute Neutrophil Count 5.6 X10^3/uL (2.0-7.7); Basophil# 0.11 X10^3/uL; Basophil% 1.1 % (0-1); Eosinophil# 0.34 X10^3/uL; Eosinophils% 3.5 % (0-5); Hematocrit 44.7 % (37-47); Hemoglobin 14.9 g/dL (12.0-15.0); Lymphocyte # 2.87 X10^3/ul (0.83-4.51); Lymphocyte % 29.8 % (19-41); Mean Corp Hgb Conc 33.3 g/dL (32-36); Mean Corpuscular Hgb 28.8 pg (27.0-32.0); Mean Corpuscular Volume 86.3 fL (81-99); Mean Platelet Vol. 11.4 fl (6.2-12.0); Monocyte# 0.66 X10^3/uL; Monocyte% 6.8 % (0-10); NRBC Flagged by Analyzer 0 % (0-5); Neutrophil # 5.63 X10^3/uL (2.7-7.7); Neutrophil % 58.5 % (47-70); Platelet Count 173 K/mm3 (150-450); RBC Distribution Width CV 12.7 % (11.6-14.6); RBC Distribution Width SD 40.2 fl (35.1-43.9); Red Blood Count 5.18 M/mm3 (4.2-5.4); White Blood Count 9.6 K/mm3 (4.4-11.0)
[2024-07-04 12:00] VITALS: BP 145/74; PULSE 66; RESP 16; O2SAT 98
[2024-07-04 12:57] LABS: Troponin T High Sens 2 HR 7 ng/L (<=14)
[2024-07-04 13:04] VITALS: BP 147/79; PULSE 68; RESP 19; TEMP 36.9; O2SAT 97
== END 2024-07-04 13:16 | disposition home or self-care (01) ==
PROVIDERS: Emergency Provider Emergency Medicine; PCP Nurse Practitioner Family; Visit Provider Emergency Medicine
DX: R53.81 Other malaise (principal); R07.9 Chest pain, unspecified; R51.9 Headache, unspecified; I10 Essential (primary) hypertension; E07.9 Disorder of thyroid, unspecified; F32.A Depression, unspecified; F41.9 Anxiety disorder, unspecified; F17.210 Nicotine dependence, cigarettes, uncomplicated; Z79.890 Hormone replacement therapy; Z79.899 Other long term (current) drug therapy
CPT/HCPCS: 70450; 71045; 80053; 84484; 85025; 93005; 99284; A4216

== ENCOUNTER → 2024-07-15 | Outpatient (CLI) | payer OTHER, SELFPAY ==
[2024-07-15 17:47] LABS: Anion Gap 10 (5-15); BUN 17 mg/dL (4-19); BUN/Creat Ratio 18.1 RATIO (10-20); Calcium,Total 9.1 mg/dL (7.6-11.0); Chloride 106 mmol/L (98-108); Creatinine, Serum 0.96 mg/dL (0.70-1.20); EST Glomerular Filtration Rate 69 (>60); Glucose 122 mg/dL (70-99); Potassium 3.8 mmol/L (3.3-5.1); Sodium Level 139 mmol/L (133-145)
== END | disposition home or self-care (01) ==
LOC: VSLAB 15:00
PROVIDERS: PCP Nurse Practitioner Family
DX: I10 Essential (primary) hypertension (principal)
CPT/HCPCS: 36415; 80048

== ENCOUNTER → 2025-02-05 | Outpatient (CLI) | payer OTHER, SELFPAY ==
[2025-02-05 16:34] LABS: Hematocrit 44.1 % (37-47); Hemoglobin 14.6 g/dL (12.0-15.0); Immature Granulocytes Count 0.040 X10^3/uL (0.0-0.0); Mean Corp Hgb Conc 33.1 g/dL (32-36); Mean Corpuscular Volume 86.1 fL (81-99); Mean Platelet Vol. 12.8 fl (6.2-12.0); NRBC Flagged by Analyzer 0 % (0-5); Platelet Count 182 K/mm3 (150-450); RBC Distribution Width CV 12.8 % (11.6-14.6); RBC Distribution Width SD 40.5 fl (35.1-43.9); Red Blood Count 5.12 M/mm3 (4.2-5.4); White Blood Count 10.1 K/mm3 (4.4-11.0)
[2025-02-05 17:19] LABS: AST(SGOT) 21 U/L (<=31); Alanine Aminotransfer ALT/SGPT 22 U/L (<=34); Albumin, Serum 4.2 g/dL (3.5-5.0); Alkaline Phosphatase 89 U/L (35-104); Anion Gap 11 (5-15); BUN 8 mg/dL (4-19); BUN/Creat Ratio 10.0 RATIO (10-20); Calcium,Total 9.6 mg/dL (7.6-11.0); Carbon Dioxide 24.9 mmol/L (21.0-32.0); Chloride 102 mmol/L (98-108); Cholesterol 178 mg/dL (<=200); Globulin 2.2 g/dL (2.2-4.2); Glucose 90 mg/dL (70-99); Low Density Lipoprotein Calc. 103 mg/dL; Potassium 3.7 mmol/L (3.3-5.1); T4 Total, Thyroxin 9.3 ug/dL (4.8-13.9); Triglycerides 119 mg/dL; Very Low Density Lipoprotein 24 mg/dL (5-40); cholesterol:hdl ratio screen 3.48
== END | disposition home or self-care (01) ==
PROVIDERS: PCP Nurse Practitioner Family
DX: E03.9 Hypothyroidism, unspecified (principal); I10 Essential (primary) hypertension; Z13.1 Encounter for screening for diabetes mellitus; Z13.220 Encounter for screening for lipoid disorders
CPT/HCPCS: 36415; 80053; 80061; 83036; 84436; 84439; 84443; 85025